=== PATIENT | female | born 1965 | race Caucasian/White ===

== ENCOUNTER 2016-12-09 20:13 | Emergency (ER) | payer OTHER, MEDICARE ==
[~2016-12-09 20:13] MED LIST: CLONAZEPAM0.5 MG PO; CLONAZEPAM1 MG PO; FLEXERIL10 MG PO; GABAPENTIN300 MG PO; KLONOPIN 1MG TAB1 MG PO; MOTRIN800 MG PO; PERCOCET 325 MG1 TA2 PO; PREDNISONE 10MG10 M1 PO; SERTRALINE HYDR50 MG PO; ZITHROMAX Z-PA250 M1 PO; ZOLOFT 100 MG100 MG PO
[2016-12-09 20:25] VITALS: BP 108/70
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
[2016-12-09] MEDS ORDERED: ATORVASTATIN CA20 M1 PO (22:13)
[2016-12-09] MEDS ORDERED: CLONAZEPAM1 M2 PO (22:14)
[2016-12-09] MEDS ORDERED: GABAPENTIN400 M2 PO (22:14)
[2016-12-09] MEDS ORDERED: SERTRALINE HCL100 MG PO (22:14)
[2016-12-09] MEDS ORDERED: VITAMIN D2000 UNIT PO (22:15)
--- NOTE | 2016-12-09 23:59 | CT SCAN REPORT ---
EXAMINATION: CT HEAD WITHOUT CONTRAST CT CERVICAL SPINE WITHOUT CONTRAST CLINICAL INFORMATION: Fell down last night. Possible loss of consciousness. Headache. Nausea. . Tenderness. COMPARISON: CT head 07/20/2014 TECHNIQUE: Imaging was performed from the skull base to vertex without intravenous administration of contrast. In addition, helical noncontrast CT imaging was acquired through the cervical spine and source images were reviewed along with axial reconstructions and sagittal and coronal MPRs. DLP: 972.45 mGy-cm FINDINGS: HEAD: No intracranial mass, hemorrhage, or midline shift is visualized. The ventricles and sulci are age-appropriate. No extra-axial collections are identified. Retention cyst in the peripheral left sphenoid sinus measuring 1 cm. CERVICAL SPINE: There is no evidence of acute cervical spine fracture. No pre- or paravertebral soft tissue abnormality is identified. Degenerative change of the cervical spine with C6-C7 disc height narrowing and facet joint arthrosis. Limited assessment of the lung apices is unremarkable. IMPRESSION: 1. No acute intracranial pathology. 2. No CT evidence of acute cervical spine fracture or traumatic subluxation. Degenerative disc disease of cervical spine.
== END 2016-12-10 00:40 ==
LOC: ERH 20:13
DX: S09.90XA Unspecified injury of head, initial encounter (principal); S16.1XXA Strain of muscle, fascia and tendon at neck level, initial encounter; W10.9XXA Fall (on) (from) unspecified stairs and steps, initial encounter; Y93.9 Activity, unspecified; Y92.9 Unspecified place or not applicable